=== PATIENT | male | born 1970 | race Caucasian/White ===

== ENCOUNTER 2021-03-08 23:06 | Outpatient (CLI) | payer MEDICARE, MEDICAID | END 2021-03-08 23:07 | disposition short-term general hospital (02) | LOC: EMS 23:06 | DX: E11.10 Type 2 diabetes mellitus with ketoacidosis without coma (principal); E11.22 Type 2 diabetes mellitus with diabetic chronic kidney disease; N18.9 Chronic kidney disease, unspecified; K85.90 Acute pancreatitis without necrosis or infection, unspecified | CPT/HCPCS: A0425; A0429 ==